=== PATIENT | male | born 1945 | race Caucasian/White ===

== ENCOUNTER → 2017-10-18 | Outpatient (CLI) | payer MEDICARE ==
[~2017-10-18] MED LIST: Coumadin5 MG PO
[2017-10-18 18:32] LABS: BASOPHILS ABSOLUTE AUTO 0.05 K/mm3 (0.00-0.23); BASOPHILS PERCENT AUTO 1 % (0-2); EOSINOPHILS ABSOLUTE AUTO 0.16 K/mm3 (0.00-0.68); EOSINOPHILS PERCENT AUTO 2 % (0-6); Hematocrit 42.3 % (37.0-53.0); Hemoglobin 13.8 g/dL (13.5-17.5); IMMATURE GRAN ABSOLUTE AUTO 0.05 K/mm3 (0.00-0.10); IMMATURE GRAN PERCENT AUTO 1 % (0-1); LYMPHOCYTES ABSOLUTE AUTO 2.22 K/mm3 (0.84-5.20); LYMPHOCYTES PERCENT AUTO 30 % (21-46); MONOCYTES ABSOLUTE AUTO 0.61 K/mm3 (0.16-1.47); MONOCYTES PERCENT AUTO 8 % (4-13); Mean Corpuscular HGB 30.4 pg (26.0-34.0); Mean Corpuscular HGB Conc 32.6 g/dL (31.5-36.5); Mean Corpuscular Volume 93 fL (80-100); NEUTROPHILS ABSOLUTE AUTO 4.33 K/mm3 (1.96-9.15); NEUTROPHILS PERCENT AUTO 58 % (41-73); Platelet Count 379 K/mm3 (150-400); RDW Coefficient Variation 13.6 % (11.7-14.2); RDW Standard Deviation 46.2 fL (35.1-46.3); Red Blood Cell Count 4.54 M/mm3 (4.30-5.90); White Blood Cell Count 7.42 K/mm3 (4.00-11.30)
[2017-10-18 19:15] LABS: Alanine Aminotransfer (ALT/SGP 26 U/L (12-78); Albumin, Blood 3.9 g/dL (3.4-5.0); Alk Phos 92 U/L (50-136); Anion Gap 10 mmol/L (6-16); Aspartate Aminotrans (AST/SGOT 19 U/L (12-37); Bilirubin, Total 0.4 mg/dL (0.1-1.0); Blood Urea Nitrogen 21 mg/dL (8-24); CO2, Blood 25 mmol/L (21-32); Calcium, Blood 9.2 mg/dL (8.5-10.1); Chloride, Blood 103 mmol/L (98-108); Free Thyroxine 0.85 ng/dL (0.70-1.60); Globulin, Blood 3.8 g/dL (2.2-4.0); Glomerular Filtration Rate >60 (60-); Glucose, Blood 238 mg/dL (70-99); Potassium, Blood 4.4 mmol/L (3.5-5.5); Sodium, Blood 138 mmol/L (136-145); Total Protein, Blood 7.7 g/dL (6.4-8.2)
[2017-10-18 19:20] LABS: Triiodothyronine, Free 2.29 pg/mL (2.18-3.98)
== END | disposition home or self-care (01) ==
LOC: LAB SHORT 14:30 → LAB 14:30
PROVIDERS: Nurse Practitioner Family
DX: Z13.29 Encounter for screening for other suspected endocrine disorder (principal); R53.83 Other fatigue; I10 Essential (primary) hypertension
CPT/HCPCS: 80053; 84439; 84443; 84481; 85025

== ENCOUNTER 2021-06-22 17:09 | Inpatient (IN) | payer MEDICARE ==
[~2021-06-22] VITALS: Ht 177.8 cm; Wt 98.2 kg
[2021-06-22 17:49] LABS: BASOPHILS ABSOLUTE AUTO 0.06 K/mm3 (0.00-0.23); BASOPHILS PERCENT AUTO 1 % (0-2); EOSINOPHILS ABSOLUTE AUTO 0.03 K/mm3 (0.00-0.68); EOSINOPHILS PERCENT AUTO 0 % (0-6); Hemoglobin 14.7 g/dL (13.5-17.5); IMMATURE GRAN ABSOLUTE AUTO 0.04 K/mm3 (0.00-0.10); IMMATURE GRAN PERCENT AUTO 0 % (0-1); LYMPHOCYTES ABSOLUTE AUTO 1.56 K/mm3 (0.84-5.20); LYMPHOCYTES PERCENT AUTO 17 % (21-46); MONOCYTES ABSOLUTE AUTO 0.74 K/mm3 (0.16-1.47); MONOCYTES PERCENT AUTO 8 % (4-13); Mean Corpuscular HGB 29.8 pg (26.0-34.0); Mean Corpuscular HGB Conc 33.4 g/dL (31.5-36.5); Mean Corpuscular Volume 89 fL (80-100); NEUTROPHILS ABSOLUTE AUTO 6.57 K/mm3 (1.96-9.15); NEUTROPHILS PERCENT AUTO 73 % (41-73); Platelet Count 366 K/mm3 (150-400); RDW Coefficient Variation 13.1 % (11.7-14.2); RDW Standard Deviation 42.5 fL (35.1-46.3); Red Blood Cell Count 4.93 M/mm3 (4.30-5.90)
[2021-06-22 18:08] LABS: Alanine Aminotransfer (ALT/SGP 39 U/L (12-78); Albumin, Blood 3.7 g/dL (3.4-5.0); Albumin/Globulin Ratio 0.9 (0.8-1.8); Alk Phos 95 U/L (50-136); Anion Gap 5 mmol/L (6-16); Aspartate Aminotrans (AST/SGOT 32 U/L (12-37); Bilirubin, Total 0.7 mg/dL (0.1-1.0); Blood Urea Nitrogen 12 mg/dL (8-24); Bun/Creatinine Ratio 11.1 (12.0-20.0); CO2, Blood 25 mmol/L (21-32); Calcium, Blood 9.3 mg/dL (8.5-10.1); Chloride, Blood 103 mmol/L (98-108); Creatinine, Blood 1.08 mg/dL (0.60-1.20); Globulin, Blood 3.9 g/dL (2.2-4.0); Glomerular Filtration Rate >60 (60-); Glucose, Blood 256 mg/dL (70-99); Sodium, Blood 133 mmol/L (136-145); Total Protein, Blood 7.6 g/dL (6.4-8.2)
[2021-06-22] MEDS ORDERED: METO100ER PO (20:36)
[2021-06-22] MEDS ORDERED: PRAV20 PO (20:37)
[2021-06-22] MEDS ORDERED: PIOG15 PO ×2 (20:37→20:40)
[2021-06-22] MEDS ORDERED: GLIP10 PO (20:38)
[2021-06-22] MEDS ORDERED: LOSARTAN-HCTZ1 EACH PO (20:39)
[2021-06-22 21:40] LABS: Source, Urine Clean Catch
[2021-06-22 21:43] LABS: Blood, Urine 2+ (Neg); Glucose Qualitative, Urine 3+ (Neg); Ketones, Urine 3+ (Neg); Leukocyte Esterase, Urine Neg (Neg); Nitrite, Urine Neg (Neg); Protein, Urine 4+ (Neg); Specific Gravity, Urine 1.025 (1.003-1.022); Urobilinogen, Urine NORM (Normal)
[2021-06-22 22:07] LABS: Bilirubin, Urine 1+ (Neg); Color, Urine Yellow (P-Yellow)
[2021-06-22 22:11] LABS: Appearance, Urine Clear (Clear); Bacteria Few /hpf; Mucus Light (0-Heavy); Squamous Epithelial Cells Few /hpf (Few); White Blood Cells, Urine 0-2 /hpf (0-5)
[2021-06-22 23:51] LABS: Anti-Xa UFH, PHA Monitoring <0.10 IU/mL; Prothrombin Time Results 11.5 Sec (9.7-11.5)
[2021-06-23] MEDS ORDERED: PRAV20 PO (00:33)
--- NOTE | 2021-06-23 00:36 | NUR ---
ADMIT ARRIVED TO VIA STRETCHER @0010. PT 1 ASSIST TRANSFER TO 330 BED. AMRIK AT BEDSIDE TO ANSWER QUESTIONS. PT ADMITTED FOR CVA. CALL LIGHT & BED ALARM IN PLACE. ORIENTED TO & CALL LIGHT.
--- NOTE | 2021-06-23 05:39 | NUR ---
SHIFT SUMMARY AOX4-SELF, SITUATION, PLACE, DATE. ABLE TO ANSWER ORIENTATION QUESTIONS CORRECTLY. HOWEVER ACTS FORGETFUL. IS SLOW TO RESPOND & HAS OCCASIONAL NONSENSICAL RESPONSES. REPORTS HAVING VISUAL HALLUCINATIONS & STATES "I SEE MY CAT" NO CAT IN THE ROOM. 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 NOTICED SLIGHT L FACIAL DROOP WHEN ASKED TO STICK TONGUE OUT. HAS DIFFICULTY SEEING OUT L EYE, COVERED R EYE & ASKED PT TO TELL ME HOW MANY FINGERS I WAS HOLDING UP & HE STATED "WHERE IS YOUR HAND?" WHEN MY HAND WAS WITHIN A FEW INCHES OF HIS NOSE. REPORTED 10/10 HEADACHE, MEDICATED 1X c TYLENOL & PT STATED HEADACHE WENT AWAY. DENIES N/V OR DYSPNEA. VSS. TELE AFIB HR 110-120'S. HAS BEEN NPO FOR POSSIBLE MRI & SPEECH EVAL TODAY. CALL LIGHT & BED ALARM IN REACH. AMRIK WOULD LIKE TO BE PRESENT FOR ALL HEALTHCARE DECISIONS TO MAKE SURE PT FULLY UNDERSTANDS, HER PHONE NUMBER IS ON THE BOARD. WILL CONT TO MONITOR UNTIL DAY NURSE ASSUMES CARE.
[2021-06-23 05:46] LABS: BASOPHILS ABSOLUTE AUTO 0.06 K/mm3 (0.00-0.23); BASOPHILS PERCENT AUTO 1 % (0-2); EOSINOPHILS ABSOLUTE AUTO 0.08 K/mm3 (0.00-0.68); EOSINOPHILS PERCENT AUTO 1 % (0-6); Hematocrit 35.3 % (37.0-53.0); Hemoglobin 11.5 g/dL (13.5-17.5); IMMATURE GRAN ABSOLUTE AUTO 0.04 K/mm3 (0.00-0.10); IMMATURE GRAN PERCENT AUTO 1 % (0-1); LYMPHOCYTES ABSOLUTE AUTO 2.12 K/mm3 (0.84-5.20); LYMPHOCYTES PERCENT AUTO 27 % (21-46); MONOCYTES ABSOLUTE AUTO 0.82 K/mm3 (0.16-1.47); MONOCYTES PERCENT AUTO 10 % (4-13); Mean Corpuscular HGB 30.3 pg (26.0-34.0); Mean Corpuscular HGB Conc 32.6 g/dL (31.5-36.5); Mean Corpuscular Volume 93 fL (80-100); Mean Platelet Volume 11.2 fL (9.1-12.4); NEUTROPHILS ABSOLUTE AUTO 4.85 K/mm3 (1.96-9.15); NEUTROPHILS PERCENT AUTO 61 % (41-73); Platelet Count 271 K/mm3 (150-400); RDW Coefficient Variation 13.2 % (11.7-14.2); RDW Standard Deviation 44.2 fL (35.1-46.3); White Blood Cell Count 7.97 K/mm3 (4.00-11.30)
[2021-06-23 06:09] LABS: Alanine Aminotransfer (ALT/SGP 25 U/L (12-78); Albumin, Blood 2.7 g/dL (3.4-5.0); Albumin/Globulin Ratio 0.9 (0.8-1.8); Alk Phos 67 U/L (50-136); Anion Gap 12 mmol/L (6-16); Aspartate Aminotrans (AST/SGOT 21 U/L (12-37); Bilirubin, Total 0.6 mg/dL (0.1-1.0); Blood Urea Nitrogen 12 mg/dL (8-24); Bun/Creatinine Ratio 11.3 (12.0-20.0); CO2, Blood 24 mmol/L (21-32); Calcium, Blood 8.3 mg/dL (8.5-10.1); Chloride, Blood 103 mmol/L (98-108); Creatinine, Blood 1.06 mg/dL (0.60-1.20); Glomerular Filtration Rate >60 (60-); Glucose, Blood 169 mg/dL (70-99); Potassium, Blood 3.5 mmol/L (3.5-5.5); Sodium, Blood 139 mmol/L (136-145); Total Protein, Blood 5.7 g/dL (6.4-8.2)
[2021-06-23 11:33] LABS: CHOL/HDL RATIO 2.8; Cholesterol 109 mg/dL (50-200); HDL Cholesterol 39 mg/dL (>39); LDL/HDL RATIO 1.1; Low Density Lipoprotein Chol 42 mg/dL (0-110); Triglycerides 138 mg/dL (30-160); Very Low Density Lipoprot Chol 27 mg/dL (6-32)
--- NOTE | 2021-06-23 16:26 | NUR ---
DAY SHIFT SUMMARY 75 YR OLD MALE PT ADMITTED WITH STROKE. MRI AND COROTID DUPLEX PERFORMED TODAY. WORKED WITH OT, PER OT PT HAS LT SIDE NEGLECT AND SHOULD TRANSFER TO RT SIDE FOR TIME BEING. PT ABLE TO STAND AND AMBULATE WITH STANDBY ASSIT TO BATHROOM WITH FRONT WHEEL WALKER AND GAIT BELT. A/O X3, SLOW TO RESPOND AND SOME CONFUSSION. PER ST ADVANCED FROM NPO TO PUREE DIET. CALL LIGHT WITHIN REACH.
--- NOTE | 2021-06-23 21:53 | NUR ---
CARDIAC: PATIENT IS A-FIB 120'S TO 140'S, RATE INCREASES WITH ACTIVITY. PATIENT DENIES CHEST PAIN. LOPRESSOR IS SCHEDULED TO START IN THE AM. DR HUERTAS IS NOTIFIED AND AN ORDER FOR A NOW DOSE OF LOPRESSOR 100MG IS OBTAINED.
[2021-06-23] MEDS ORDERED: [UNRECOGNIZED DRUG - OTHER] PO (22:13)
--- NOTE | 2021-06-24 05:00 | NUR ---
SHIFT SUMMARY: PATIENT IS A&O TO SELF AND PLACE, SLOW TO ANSWER. CONTINUES TO HAVE LEFT SIDED DEFICITS WITH NO CHANGE IN ASSESSMENT THROUGH SHIFT. GOOD EFFECT WAS OBTAINED FROM 100 MG OF LOPRESSOR. RATE HAS BEEN 104-115 WITH STABLE BP. PATIENT HAS AN UNSTEADY GAIT WHEN AMB. TO BATHROOM. STANDING AT BEDSIDE WITH ASSIST OF ONE TO USE THE URINAL THROUGH HOUSR OF SLEEP. BED ALARM IS ON. PT DOES NOT USE CALL DUMONT.
[2021-06-24 05:34] LABS: BASOPHILS ABSOLUTE AUTO 0.07 K/mm3 (0.00-0.23); BASOPHILS PERCENT AUTO 1 % (0-2); EOSINOPHILS ABSOLUTE AUTO 0.13 K/mm3 (0.00-0.68); EOSINOPHILS PERCENT AUTO 2 % (0-6); Hemoglobin 12.2 g/dL (13.5-17.5); IMMATURE GRAN ABSOLUTE AUTO 0.04 K/mm3 (0.00-0.10); IMMATURE GRAN PERCENT AUTO 1 % (0-1); LYMPHOCYTES ABSOLUTE AUTO 2.08 K/mm3 (0.84-5.20); LYMPHOCYTES PERCENT AUTO 27 % (21-46); MONOCYTES ABSOLUTE AUTO 0.72 K/mm3 (0.16-1.47); MONOCYTES PERCENT AUTO 9 % (4-13); Mean Corpuscular HGB 30.3 pg (26.0-34.0); Mean Corpuscular Volume 92 fL (80-100); Mean Platelet Volume 11.3 fL (9.1-12.4); NEUTROPHILS PERCENT AUTO 60 % (41-73); Platelet Count 293 K/mm3 (150-400); RDW Coefficient Variation 13.2 % (11.7-14.2); RDW Standard Deviation 43.8 fL (35.1-46.3); Red Blood Cell Count 4.03 M/mm3 (4.30-5.90); White Blood Cell Count 7.64 K/mm3 (4.00-11.30)
[2021-06-24 06:02] LABS: Anion Gap 4 mmol/L (6-16); Blood Urea Nitrogen 12 mg/dL (8-24); Bun/Creatinine Ratio 11.1 (12.0-20.0); CO2, Blood 26 mmol/L (21-32); Calcium, Blood 8.6 mg/dL (8.5-10.1); Chloride, Blood 105 mmol/L (98-108); Creatinine, Blood 1.08 mg/dL (0.60-1.20); Glomerular Filtration Rate >60 (60-); Glucose, Blood 241 mg/dL (70-99); Potassium, Blood 3.6 mmol/L (3.5-5.5); Sodium, Blood 135 mmol/L (136-145)
--- NOTE | 2021-06-24 12:35 | NUR ---
[facility]UN[facility] CB[facility] CBG OF 310. AT BEDSIDE REPORTS THAT THE PT WAS TAKEN OFF INSULIN AT HOME AND PUT ON PO METFORMIN D/T THE GLUCOSE GRADUALLY RISING WHILE ON INSULIN, REPORTS ONCE INSULIN WAS STOPPED THE GLUCOSE LEVELS STARTED TO COME DOWN. THIS WAS REPORTED TO DR ROSENBERG WHO GAVE A VERBAL ORDER TO HOLD INSULIN FOR NOW.
--- NOTE | 2021-06-24 17:02 | NUR ---
DAY SHIFT SUMMARY 75 YR OLD MALE ADMITTED FOR STROKE. LT SIDED WEAKNESS AND VISION DEFICIT. BED ALARM AND CHAIR ALARMS ON. PT EXPERIENCED FALL TODAY WHEN HE GOT HIMSELF UP FROM CHAIR TO "DO EXERCISES". STAFF HEARD CHAIR ALARM AND THEN THE SOUND OF THE BED JOSTLE. WHEN STAFF ENTERED ROOM PT WAS FOUND ON FLOOR BETWEEN CHAIR AND BED. NO INJURY NOTED, PT STATED HE DID NOT HURT HIMSELF. MD (DR ROSENBERG)/ CHARGE NURSE (YIFAN Cintron)/ PT'S NOTIFIED. VITALS, ASSESSMENT, AND NEURO CHECKS DONE.PT TO BE DISCHARGED HOME WITH HOME HEALTH WHEN PT'S ARRIVES AFTER 1900. CALL LIGHT WITHIN REACH, BED ALARM ON.
[2021-06-24] MEDS ORDERED: ASPI81CH PO (17:48)
[2021-06-24] MEDS ORDERED: ATOR40TA PO (17:48)
--- NOTE | 2021-06-24 18:35 | NUR ---
DISCHARGE PAPERWORK REVIEWED WITH PT AND SIGNED BY PT. IV REMOVED, TELE BOX REMOVED. MEDS FAXED TO PT PHARMACY. PT WAITING FOR RIDE IN ROOM, IS ON HER WAY FOR TRANSPORTATION. WILL REMAIN TO MONITOR AND CARE FOR PT UNTIL TRANSPORTATION ARRIVES. CALL LIGHT REMAINS WITH REACH.
--- NOTE | 2021-06-24 20:13 | NUR ---
PATIENT DISCHARGE. PERSONAL BELONGINGS TAKEN. 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
== END 2021-06-24 20:12 | disposition home health service (06) | DRG 65 ==
LOC: ER 17:09 → MEDS 23:45
PROVIDERS: Family Medicine; Pharmacist; Physician Assistant; ADMIT Internal Medicine
DX: I63.9 Cerebral infarction, unspecified (principal); G81.94 Hemiplegia, unspecified affecting left nondominant side; I10 Essential (primary) hypertension; E78.5 Hyperlipidemia, unspecified; E11.65 Type 2 diabetes mellitus with hyperglycemia; Z86.718 Personal history of other venous thrombosis and embolism; Z28.21 Immunization not carried out because of patient refusal; Z91.14 Patient's other noncompliance with medication regimen
CPT/HCPCS: 36415; 70450; 70551; 71045; 80048; 80053; 80061; 81001; 82947; 83036; 84484; 85025; 85520; 85610; 85730; 92526; 92610; 93005; 93010; 93880; 96374; 97112; 97161; 97166; 97530-CQ; 97535; 99285-25; A9270; C8929; Q9957

== ENCOUNTER 2023-11-30 10:54 | Day surgery (SDC) | payer MEDICARE ==
[~2023-11-30] VITALS: Ht 177.8 cm; Wt 98.5 kg
[~2023-11-30 10:54] MED LIST changes: +ASPI81CH PO; +ATOR40TA PO; +Amiodarone HCl200 MG PO; +Balanced Salt Epinephrine Irrigation Solution 500 mL IR SCH; +ELIQUIS2.5 MG PO; +GLIP10 PO; +JARDIANCE10 MG PO; +LOSARTAN-HCTZ1 EACH PO; +Lidocaine HCl/Pf 1% 5 ML VIAL XX SCH; +METO100ER PO; +Moxifloxacin HCL 0.5 MG/0.1 ML 0.4MLSYR RIGHTEYE SCH; +NS 500 ML IV ONE; +PHENYLEPHRINE\\TROPICAMIDE\\TETRACAINE OPHTHALMIC DILATING SOLN RIGHTEYE PRN; +PIOG15 PO; +PRAV20 PO; +Povidone-Iodine 450 DROP/30 ML Solution RIGHTEYE SCH; +[UNRECOGNIZED DRUG - OTHER] PO
[2023-11-30] MEDS ORDERED: Tropicamide 1% Opth Soln 15 ML BTL ONE (11:09)
[2023-11-30] MEDS ORDERED: Midazolam HCl 1MG / ML 2ML Vial ONE (11:11)
[2023-11-30] MEDS ORDERED: FentaNYL Citrate 50 MCG/ML 2 ML Injection ONE (11:11)
[2023-11-30] MEDS ORDERED: JARDIANCE25 MG PO (11:29)
[2023-11-30] MEDS ORDERED: ASPI325 PO (11:30)
[2023-11-30] MEDS ORDERED: LOSARTAN-HCTZ1 EAC5 (11:30)
[2023-11-30] MEDS ORDERED: EUTHYROX50 MC1 (11:32)
[2023-11-30] MEDS ORDERED: NS 500 ML IV ONE (11:49)
[2023-11-30 12:35] VITALS: BP 142/104
== END 2023-11-30 13:00 | disposition home or self-care (01) ==
LOC: ORSCSDS 10:54
PROVIDERS: Student in an Organized Health Care Education/Training Program
PROC: 08RJ3JZ Replacement of Right Lens with Synthetic Substitute, Percutaneous Approach (ICD-10-PCS; principal; 2023-11-30 12:30)
DX: E11.36 Type 2 diabetes mellitus with diabetic cataract (principal); H25.811 Combined forms of age-related cataract, right eye; I10 Essential (primary) hypertension; I48.91 Unspecified atrial fibrillation; Z79.82 Long term (current) use of aspirin; Z79.899 Other long term (current) drug therapy
CPT/HCPCS: 82947; J2250; J3010; J7040; V2632